=== PATIENT | female | born 1990 | race Caucasian/White ===

== ENCOUNTER 2017-03-24 19:33 | Emergency (ER) | payer BC ==
[~2017-03-24 19:33] MED LIST: CIPR-9 PO; EFFE150C PO; ZOFR4TAB PO
[2017-03-24 20:00] VITALS: BP 99/66; PULSE 89; RESP 16; TEMP 98.6; O2SAT 100
[2017-03-24] MEDS ORDERED: SODIUM CHLOR 0.9% 1000 ML INJ 1,000 ML IV ONE (20:02)
[2017-03-24] MEDS ORDERED: METH40TA PO (20:04)
--- NOTE | 2017-03-24 20:11 | PD ---
HPI Chief Complaint: OD/ Ingestion Time Seen by Provider: 20:02 Travel History International Travel<30 days: No Contact w/Intl Traveler<30days: No Traveled to known affect area: No History of Present Illness HPI 26-year-old female presents to the emergency department via EMS for evaluation of possible overdose. Apparently, the patient took 4 of her boyfriend's pills that he gave her. She did this because she did not get her methadone today and states she was going through withdrawals. He gave her the pelvis to help her with her withdrawals. She does not know what the pills were or the dosages of the pills. Apparently, the patient was unresponsive in her room after taking the pills. EMS was called. Fire on scene was able to wake her with a sternal rub. When EMS arrived, she was walking without difficulty. She has been a GCS of 15 since. Patient was not given any medications prior to arrival. The patient denies any medical complaints at this time. No fevers. No neck pain or back pain. No chest pain or abdominal pain. No shortness of breath. No nausea, vomiting, diarrhea. She states this was an accidental overdose. She denies any suicidal or homicidal ideation. She states her only medication that she takes is methadone. Moderate severity. PFSH Past Medical History Autoimmune Disease: No Blood Disorders: No Bipolar Disorder: Yes Anxiety: Yes Depression: Yes Cancer: No Cardiovascular Problems: No Chemotherapy: No Diabetes: No Diminished Hearing: No Endocrine: No Gastrointestinal Disorders: No Genitourinary: Yes (lt kindey stents placed) Immune Disorder: No Implanted Vascular Access Dvce: No Musculoskeletal: No Neurologic: No Psychiatric: Yes (bi polar) Reproductive: No Respiratory: No Immunizations Current: Yes Radiation Therapy: No Seizures: No Thyroid Disease: No Ulcer: No ?: Not LMP: CURRENTLY Menopausal: No : 0 Para: 0 Miscarriage: 0 Past Surgical History Genitourinary Surgery: Yes (LEFT KIDNEY/STENTS PLACED) Other Surgery: Yes Social History Alcohol Use: Yes (OCC) Tobacco Use: Yes (e cigarettes) Substance Use: No Allergies-Medications (Allergen,Severity, Reaction): Coded Allergies: No Known Allergies (Verified , 03/07/16) Reported Meds & Prescriptions Reported Meds & Active Scripts Active Reported Methadone (Methadone HCl) 40 Mg Tab 170 Mg PO DAILY Review of Systems Except as stated in HPI: all other systems reviewed are Neg Physical Exam Narrative GENERAL: Well-nourished, well-developed female patient, afebrile. SKIN: Focused skin assessment warm/dry. HEAD: Normocephalic. Atraumatic. EYES: No scleral icterus. No injection or drainage. NECK: Supple, trachea midline. No JVD or lymphadenopathy. CARDIOVASCULAR: Regular rate and rhythm without murmurs, gallops, or rubs. RESPIRATORY: Breath sounds equal bilaterally. No accessory muscle use. Lungs sounds are clear to auscultation. GASTROINTESTINAL: Abdomen soft, non-tender, nondistended. MUSCULOSKELETAL: No cyanosis, or edema. BACK: Nontender without obvious deformity. No CVA tenderness. PSYCHIATRIC: No delusional thought processes. No hallucinations. Data Data Last Documented VS Vital Signs Date Time Temp Pulse Resp B/P (MAP) Pulse Ox O2 Delivery O2 Flow Rate FiO2 03/24/17 21:28 110 20 92/53 (66) 98 Room Air 03/24/17 20:00 98.6 Orders Orders Electrocardiogram (03/24/17 20:02) Complete Blood Count With Diff (03/24/17 20:02) Comprehensive Metabolic Panel (03/24/17 20:02) Urinalysis - C+S If Indicated (03/24/17 20:02) Iv Access Insert/Monitor (03/24/17 20:02) Ecg Monitoring (03/24/17 20:02) Oximetry (03/24/17 20:02) Sodium Chloride 0.9% Flush (Ns Flush) (03/24/17 20:15) Sodium Chlor 0.9% 1000 Ml Inj (Ns 1000 M (03/24/17 20:02) Drug Screen, Random Urine (03/24/17 20:02) Alcohol (Ethanol) (03/24/17 20:02) Salicylates (Aspirin) (03/24/17 20:02) Tylenol (Acetaminophen) (03/24/17 20:02) Labs Laboratory Tests Test 03/24/17 20:15 White Blood Count 5.4 TH/MM3 Red Blood Count 2.79 MIL/MM3 Hemoglobin 8.4 GM/DL Hematocrit 24.7 % Mean Corpuscular Volume 88.7 FL Mean Corpuscular Hemoglobin 30.2 PG Mean Corpuscular Hemoglobin Concent 34.1 % Red Cell Distribution Width 15.2 % Platelet Count 305 TH/MM3 Mean Platelet Volume 7.2 FL Neutrophils (%) (Auto) 53.5 % Lymphocytes (%) (Auto) 38.2 % Monocytes (%) (Auto) 4.3 % Eosinophils (%) (Auto) 3.6 % Basophils (%) (Auto) 0.4 % Neutrophils # (Auto) 2.9 TH/MM3 Lymphocytes # (Auto) 2.0 TH/MM3 Monocytes # (Auto) 0.2 TH/MM3 Eosinophils # (Auto) 0.2 TH/MM3 Basophils # (Auto) 0.0 TH/MM3 CBC Comment DIFF FINAL Differential Comment Urine Color COLORLESS Urine Turbidity CLEAR Urine pH 5.0 Urine Specific [place] 1.005 Urine Protein NEG mg/dL Urine Glucose (UA) NEG mg/dL Urine Ketones NEG mg/dL Urine Occult Blood MOD Urine Nitrite NEG Urine Bilirubin NEG Urine Urobilinogen LESS THAN 2.0 MG/DL Urine Leukocyte Esterase NEG Urine RBC 2 /hpf Urine WBC 1 /hpf Urine Squamous Epithelial Cells <1 /hpf Urine Mucus FEW /lpf Microscopic Urinalysis Comment CULT NOT INDICATED Blood Urea Nitrogen 15 MG/DL Creatinine 0.76 MG/DL Random Glucose 97 MG/DL Total Protein 7.6 GM/DL Albumin 3.5 GM/DL Calcium Level 7.6 MG/DL Alkaline Phosphatase 60 U/L Aspartate Amino Transf (AST/SGOT) 28 U/L Alanine Aminotransferase (ALT/SGPT) 27 U/L Total Bilirubin 0.2 MG/DL Sodium Level 140 MEQ/L Potassium Level 3.7 MEQ/L Chloride Level 106 MEQ/L Carbon Dioxide Level 28.6 MEQ/L Anion Gap 5 MEQ/L Estimat Glomerular Filtration Rate 91 ML/MIN Salicylates Level LESS THAN 1.7 MG/DL Urine Opiates Screen NEG Acetaminophen Level LESS THAN 2.0 MCG/ML Urine Barbiturates Screen NEG Urine Amphetamines Screen POS Urine Benzodiazepines Screen NEG Urine Cocaine Screen NEG Urine Cannabinoids Screen NEG Ethyl Alcohol Level 192 MG/DL [facility] Medical Decision Making Medical Screen Exam Complete: Yes Emergency Medical Condition: Yes Medical Record Reviewed: Yes Differential Diagnosis Accidental overdose versus intentional overdose versus medical clearance Narrative Course 26-year-old female presents to the emergency department by EMS for evaluation after she took 4 of a medication to her boyfriend gave her was found unresponsive after. She was awakened with a sternal rub. She is now GCS of 15 and has no complaints. She does not know what she took. She states this was accidental and denies any thoughts of suicide. EKG, CBC, CMP, alcohol level, salicylate level, Tylenol level, urine drug screen, UA are ordered and pending. Patient is given normal saline 1 L IV bolus. EKG shows sinus rhythm, heart rate 88, no acute ST changes. CBC shows anemia of hemoglobin 8.4, hematocrit 24.7. CMP is unremarkable. Alcohol level is 192. Salicylate level is less than 1.7. Tylenol level is less than 2.0. UDS is positive for amphetamines. UA is negative for infection. I discussed the anemia with the patient. She states she has a history of anemia since she had her child. She denies any rectal bleeding or heavy menstrual cycles. She does not wish for further examination for this. She is instructed to follow with her primary care physician closely for recheck of her hemoglobin. She verbalizes agreement. Patient was allowed to rest in the emergency department subsequent clean sober or until she has a ride. Patient verbalizes agreement. Diagnosis Primary Impression: Accidental overdose Qualified Codes: T50.901A - Poisoning by unspecified drugs, medicaments and biological substances, accidental (unintentional), initial encounter Referrals: Primary Care Physician call for appointment Patient Instructions: Adult Overdose (ED), General Instructions Additional Instructions: Follow-up with your primary care physician regarding your anemia. Follow-up with your primary care physician. Return to the emergency department for any acute worsening of symptoms. Med/Other Pt SpecificInfo: No Change to Meds Disposition: 01 DISCHARGE HOME Condition: Stable Aga Ferreira MARTIN Mar 24, 2017 20:11
[2017-03-24] MEDS ORDERED: SODIUM CHLORIDE 0.9% FLUSH 10 ML FLUSH IVF PRN (20:15)
[2017-03-24 20:20] VITALS: BP 96/55; PULSE 75; RESP 15; O2SAT 100
[2017-03-24 20:40] LABS: AUTOMATED NEUTROPHIL # 2.9 TH/MM3 (1.8-7.7); BASOPHIL % 0.4 % (0.0-2.0); EOSINOPHIL # 0.2 TH/MM3 (0-0.4); EOSINOPHIL % 3.6 % (0.0-4.0); HEMATOCRIT 24.7 % (35.0-46.0); HEMO FLAGS DIFF FINAL; LYMPH % 38.2 % (9.0-44.0); MEAN CELL VOLUME 88.7 FL (80.0-100.0); MEAN CORPUSCULAR HEMOGLOBIN 30.2 PG (27.0-34.0); MEAN CORPUSCULAR HGB CONC 34.1 % (32.0-36.0); MONO % 4.3 % (0.0-8.0); NEUT % 53.5 % (16.0-70.0); PLATELET COUNT 305 TH/MM3 (150-450); RED BLOOD COUNT 2.79 MIL/MM3 (4.00-5.30); RED CELL DISTRIBUTION WIDTH 15.2 % (11.6-17.2); WHITE BLOOD COUNT 5.4 TH/MM3 (4.0-11.0)
[2017-03-24 20:47] LABS: BLOOD, URINE MOD (NEG); COMMENT (UR) CULT NOT INDICATED; CULTURE IF INDICATED CULT NOT INDICATED; GLUCOSE,URINE NEG (NEG); KETONE, URINE NEG (NEG); MUCUS URINE FEW /lpf (OCC); NITRITE,URINE NEG (NEG); SQUAMOUS EPITHELIAL CELL URINE <1 /hpf (0-5); URINE COLOR COLORLESS (YELLW/STRAW)
[2017-03-24 20:57] LABS: ANION GAP 5 MEQ/L (5-15)
[2017-03-24 21:07] LABS: ACETAMINOPHEN LESS THAN 2.0 MCG/ML (10.0-30.0); ALKALINE PHOSPHATASE 60 U/L (45-117); ALT (GPT) 27 U/L (10-53); AST (GOT) 28 U/L (15-37); BICARBONATE 28.6 MEQ/L (21.0-32.0); BLOOD UREA NITROGEN 15 MG/DL (7-18); CHLORIDE 106 MEQ/L (98-107); GLOMERULAR FILTRATION RATE 91 ML/MIN (>89); POTASSIUM 3.7 MEQ/L (3.5-5.1); SODIUM (NA) 140 MEQ/L (136-145); TOTAL BILIRUBIN ADULT 0.2 MG/DL (0.2-1.0)
[2017-03-24 21:08] LABS: ALCOHOL 192 MG/DL (0-5)
[2017-03-24 21:28] VITALS: BP 92/53; PULSE 110; RESP 20; O2SAT 98
[2017-03-25 01:02] VITALS: BP 91/54; PULSE 84; RESP 16; O2SAT 98
[2017-03-25 06:16] VITALS: BP 96/53; PULSE 85; RESP 16; O2SAT 99
--- NOTE | 2017-03-25 14:39 | EKG ---
Date Performed: 03/24/2017 Time Performed: 21:36:14 PTAGE: 26 years EKG: Sinus rhythm NORMAL ECG Compared to prior tracing no significant change PREVIOUS TRACING : 03/07/2016 12.20 DOCTOR: Olivia Garcia Interpretating Date/Time 03/25/2017 14:33:38
== END 2017-03-25 08:27 | disposition home or self-care (01) ==
LOC: NEPC 19:33
DX: T50.901A Poisoning by unspecified drugs, medicaments and biological substances, accidental (unintentional), initial encounter (principal); D64.9 Anemia, unspecified; F31.9 Bipolar disorder, unspecified; F41.9 Anxiety disorder, unspecified; F17.290 Nicotine dependence, other tobacco product, uncomplicated; Z79.899 Other long term (current) drug therapy
CPT/HCPCS: 80053; 80307; 81001; 85025; 93005; 96360; 99284; J7030

== ENCOUNTER 2017-05-04 12:03 | Emergency (ER) | payer BC ==
[~2017-05-04] VITALS: Ht 162.6 cm; Wt 55.0 kg
[~2017-05-04 12:03] MED LIST changes: -CIPR-9 PO; -EFFE150C PO; +METH40TA PO; -ZOFR4TAB PO
[2017-05-04 12:35] VITALS: BP 119/89; PULSE 95; RESP 22; TEMP 98.1; O2SAT 96
[2017-05-04] MEDS ORDERED: cloNIDine HCL 0.1 MG TAB PO ONE (12:45)
--- NOTE | 2017-05-04 12:49 | PD ---
HPI Chief Complaint: Methadone Withdrawal Time Seen by Provider: 12:35 Travel History International Travel<30 days: No Contact w/Intl Traveler<30days: No History of Present Illness HPI 26-year-old female complains of methadone withdrawal having taken her last dose , 100 mg, 2 days prior. Here she complains of pain all over and anxiety. No suicidal or homicidal ideation. She has been taking methadone daily for approximately 2 years. Location generalized a neuropsychiatric. Onset gradual. Timing constant. PFSH Past Medical History Autoimmune Disease: No Blood Disorders: No Bipolar Disorder: Yes Anxiety: Yes Depression: Yes Cancer: No Cardiovascular Problems: No Chemotherapy: No Diabetes: No Diminished Hearing: No Endocrine: No Gastrointestinal Disorders: No Genitourinary: Yes (lt kindey stents placed) Immune Disorder: No Implanted Vascular Access Dvce: No Musculoskeletal: No Neurologic: No Psychiatric: Yes (bi polar) Reproductive: No Respiratory: No Immunizations Current: Yes Radiation Therapy: No Seizures: No Thyroid Disease: No Ulcer: No Menopausal: No : 0 Para: 0 Miscarriage: 0 Past Surgical History Genitourinary Surgery: Yes (LEFT KIDNEY/STENTS PLACED) Other Surgery: Yes Social History Alcohol Use: Yes (OCC) Tobacco Use: Yes (e cigarettes) Substance Use: No Allergies-Medications (Allergen,Severity, Reaction): Coded Allergies: No Known Allergies (Verified , 03/07/16) Reported Meds & Prescriptions Reported Meds & Active Scripts Active Reported Methadone (Methadone HCl) 40 Mg Tab 170 Mg PO DAILY Review of Systems Except as stated in HPI: all other systems reviewed are Neg General / Constitutional: No: Fever Physical Exam Narrative GENERAL: 26-year-old female anxious, agitated SKIN: Warm and dry. HEAD: Atraumatic. Normocephalic. EYES: Pupils equal and round. No scleral icterus. No injection or drainage. ENT: No nasal bleeding or discharge. Mucous membranes pink and moist. NECK: Trachea midline. No JVD. CARDIOVASCULAR: Regular rate and rhythm. RESPIRATORY: No accessory muscle use. Clear to auscultation. Breath sounds equal bilaterally. GASTROINTESTINAL: Abdomen soft, non-tender, nondistended. Hepatic and splenic margins not palpable. MUSCULOSKELETAL: Extremities without clubbing, cyanosis, or edema. No obvious deformities. NEUROLOGICAL: Awake and alert. No obvious cranial nerve deficits. Motor grossly within normal limits. Five out of 5 muscle strength in the arms and legs. Normal speech. PSYCHIATRIC: No HI/SI. Data Data Last Documented VS Vital Signs Date Time Temp Pulse Resp B/P (MAP) Pulse Ox O2 Delivery O2 Flow Rate FiO2 05/04/17 12:35 98.1 95 22 119/89 (99) 96 VS reviewed Orders Orders Clonidine (Catapres) (05/04/17 12:45) Ed Discharge Order (05/04/17 13:06) MDM Medical Decision Making Medical Screen Exam Complete: Yes Emergency Medical Condition: Yes Differential Diagnosis opioid withdrawal, opioid addiction, chronic pain Narrative Course Patient is opioid withdrawal symptoms and this does not reflect an emergency that requires an inpatient stay. Her vital signs are within acceptable range. She is competent for independent decision making Diagnosis Primary Impression: Methadone withdrawal Referrals: [facility] Med/Other Pt SpecificInfo: No Change to Meds Disposition: 01 DISCHARGE HOME Condition: Stable Feliberto Sorensen MD May 04, 2017 12:49
== END 2017-05-04 15:21 | disposition home or self-care (01) ==
LOC: NEPC 12:03
DX: F11.23 Opioid dependence with withdrawal (principal); F31.9 Bipolar disorder, unspecified; F41.9 Anxiety disorder, unspecified; F17.290 Nicotine dependence, other tobacco product, uncomplicated; Z79.899 Other long term (current) drug therapy
CPT/HCPCS: 99283

== ENCOUNTER 2017-09-02 13:09 | Emergency (ER) | payer BC, OTHER ==
[~2017-09-02] VITALS: Ht 162.6 cm; Wt 62.0 kg
[2017-09-02 13:12] VITALS: BP 130/66; PULSE 104; RESP 19; TEMP 98.4; O2SAT 99
[2017-09-02] MEDS ORDERED: TYLE325T PO (13:28)
[2017-09-02] MEDS ORDERED: AMOX875T PO (13:29)
--- NOTE | 2017-09-02 13:29 | PD ---
HPI Chief Complaint: Cold / Flu Symptoms Time Seen by Provider: 13:20 Travel History International Travel<30 days: No Contact w/Intl Traveler<30days: No Traveled to known affect area: No History of Present Illness HPI Patient comes to the emergency department complaining of sore throat ongoing for 4 days. Patient describes pain as a burning aching pain without radiation. Pain is worse with swallowing. Patient reports coworker with similar but is uncertain what coworker had. Patient reports associated congestion and sinus drainage that has developed since. Patient reports occasionally have greenish nasal discharge. Denies any fevers, radiation of pain, chest pain, shortness of breath, abdominal pain, nausea, vomiting, or loss change in bowel or bladder. Patient's been taking [id number] medication with minimal relief of symptoms. PFSH Past Medical History Autoimmune Disease: No Blood Disorders: No Bipolar Disorder: Yes Anxiety: Yes Depression: Yes Cancer: No Cardiovascular Problems: No Chemotherapy: No Diabetes: No Diminished Hearing: No Endocrine: No Gastrointestinal Disorders: No Genitourinary: Yes (lt kindey stents placed) Immune Disorder: No Implanted Vascular Access Dvce: No Musculoskeletal: No Neurologic: No Psychiatric: Yes (bi polar) Reproductive: No Respiratory: No Immunizations Current: Yes Radiation Therapy: No Seizures: No Thyroid Disease: No Ulcer: No ?: Unknown LMP: 08/01/17 Menopausal: No : 0 Para: 0 Miscarriage: 0 Past Surgical History Genitourinary Surgery: Yes (LEFT KIDNEY/STENTS PLACED) Other Surgery: Yes Social History Alcohol Use: Yes (OCC) Tobacco Use: Yes (e cigarettes) Substance Use: No Allergies-Medications (Allergen,Severity, Reaction): Coded Allergies: No Known Allergies (Verified Adverse Reaction, Unknown, 09/02/17) Reported Meds & Prescriptions Reported Meds & Active Scripts Active Amoxicillin 875 Mg Tab 875 Mg PO BID 10 Days Reported Tylenol (Acetaminophen) 325 Mg Tab 325 Mg PO Q6H PRN Review of Systems Except as stated in HPI: all other systems reviewed are Neg Physical Exam Narrative GENERAL: Well-developed, well nourished, in no acute distress, and non-ill appearing. SKIN: Focused skin assessment warm and dry. HEAD: Atraumatic. Normocephalic. EYES: Pupils equal and round. EOMI. No scleral icterus. No injection or drainage. ENT: No nasal bleeding or discharge. Mucous membranes pink and moist. Tympanic membranes pearly cortez bilaterally. Posterior thinks nonerythematous without exudate. Uvula is midline. Patient speaking full sentences and swallowing own saliva without difficulty. No tenderness to facial sinuses to palpation. NECK: Trachea midline. No cervical lymphadenopathy. Supple. No nuclear rigidity. RESPIRATORY: No accessory muscle use. No respiratory distress. No coughing noted on exam. MUSCULOSKELETAL: No obvious deformities. No clubbing. No cyanosis. No edema. Full range of motion. NEUROLOGICAL: Awake and alert. No obvious cranial nerve deficits. Motor grossly within normal limits. Normal speech. PSYCHIATRIC: Appropriate mood and affect; insight and judgment normal. Data Data Last Documented VS Vital Signs Date Time Temp Pulse Resp B/P (MAP) Pulse Ox O2 Delivery O2 Flow Rate FiO2 09/02/17 13:12 98.4 104 19 130/66 (87) 99 Orders Orders Ed Discharge Order (09/02/17 13:30) [facility] Medical Decision Making Medical Screen Exam Complete: Yes Emergency Medical Condition: Yes Differential Diagnosis Strep pharyngitis, viral pharyngitis, URI, sinusitis Narrative Course Patient looks great, non-ill appearing. The patient is tolerating fluids and is well hydrated. Appears pharyngitis possibly Strep. No clinical evidence by history or evaluation to suspect meningitis and/or sepsis. There was no evidence to suggest peritonsillar abscess or retropharyngeal abscess. I discussed with the patient, diagnosis, plan of care and to follow up with the patients primary physician. The patient was given antibiotics. The patient was instructed to return if the worsens in anyway, especially if not tolerating fluids, increased pain or swelling, difficulty swallowing or breathing, or as needed. The patient agreed with plan. Patient in no obvious distress upon re-evaluation. Patient was asked if they wanted to speak to my attending, which the patient did not wish to do at this time. Any questions/concerns in reference to patient diagnosis/condition discussed and clarified prior to patient's discharge. Reinforced sheer importance of close follow up with patient's primary physician or primary care clinic. Instructed patient to return to ED immediately, if symptoms return/ worsen. Patient showed understanding of above instructions. Further instructions and recommendations were detailed in discharge paperwork. Patient ambulated without difficulty out of ED at discharge. Diagnosis Primary Impression: Pharyngitis Qualified Codes: J02.9 - Acute pharyngitis, unspecified Referrals: [facility] Patient Instructions: General Instructions, Pharyngitis (ED) Additional Instructions: Follow-up with your primary care physician next week for reevaluation. Take all medication as prescribed. Use [id number] Tylenol and ibuprofen as needed for pain and/or fever control. Follow instructions on the packaging. Gargle with warm salt water gargles. Do not swallow salt water. Drink plenty of non-caffeinated and nonalcoholic fluids. Return to the emergency department if symptoms get worse. Med/Other Pt SpecificInfo: Prescription(s) given Scripts Amoxicillin (Amoxicillin) 875 Mg Tab 875 MG PO BID for Infection for 10 Days, #20 TAB 0 Refills Prov: Huber Gill MD 09/02/17 Disposition: 01 DISCHARGE HOME Condition: Stable Brennan Taylor September 02, 2017 13:29
== END 2017-09-02 13:30 | disposition home or self-care (01) ==
LOC: NEPK 13:09
DX: J02.9 Acute pharyngitis, unspecified (principal); R09.81 Nasal congestion; R09.3 Abnormal sputum; Z72.0 Tobacco use; Z87.448 Personal history of other diseases of urinary system; Z86.59 Personal history of other mental and behavioral disorders
CPT/HCPCS: 99283